=== PATIENT | female | born 1945 | race Caucasian/White ===

== ENCOUNTER 2019-03-04 18:17 | Emergency (ER) | payer MEDICARE, BC ==
[2019-03-04 19:28] VITALS: BP 131/101
[2019-03-04] MEDS ORDERED: Sulfamethoxazole/Trimethoprim 800-160 MG Tab ONE (19:30)
--- NOTE | 2019-03-05 20:24 | EDM.PDOC ---
ED HPI GENERAL MEDICAL PROBLEM - General Chief Complaint: Genitourinary Problem Stated Complaint: urinary tract infection Time Seen by Provider: 03/04/19 18:20 Source of Information: Reports: Patient History Limitations: Reports: No Limitations - History of Present Illness INITIAL COMMENTS - FREE TEXT/NARRATIVE: Pt is a 73 year old female presents to emergency room with c/o painful urination since today morning. Pt claims he has increased frequency or urination and also constant urge to urinate. Pt claims she does get frequent urination and feels like one. No abdominal pain or pelvic pain. No fever or hills. No nausea or vomiting. No back pain. No vaginal bleeding or discharge. No other complaints. Onset Date: 03/04/19 Onset Time: 06:00 Duration: Getting Worse Quality: Reports: Ache Severity: Mild Improves with: Reports: None Worsens with: Reports: None Associated Symptoms: Denies: Confusion, Chest Pain, Cough, Diaphoresis, Fever/ Chills, Headaches, Nausea/Vomiting, Rash, Seizure, Shortness of Breath, Syncope , Weakness - Related Data Allergies Allergy/AdvReac Type Severity Reaction Status Date / Time clarithromycin Allergy Cannot Verified 03/04/19 20:17 Remember Home Meds: Home Meds Amitriptyline [Elavil] 1 - 2 tab PO BEDTIME 03/04/19 [History] Clopidogrel Bisulfate [Clopidogrel] 1 tab PO DAILY 03/04/19 [History] Enalapril Maleate 1 tab PO DAILY 03/04/19 [History] Gabapentin [Neurontin] 1 tab PO BID 03/04/19 [History] Gemfibrozil 1 tab PO DAILY 03/04/19 [History] Levothyroxine Sodium [Synthroid] 1 tab PO DAILY 03/04/19 [History] MV-Mn/Iron/FA/Herbal Cmplx#[id number] [Vitamin D3 Complete Caplet] 1 each PO DAILY [History] Metoprolol Succinate [Toprol Xl] 100 mg PO DAILY 03/04/19 [History] Potassium Chloride 40 meq PO DAILY 03/04/19 [History] Ranitidine [Zantac] 75 mg PO BID 03/04/19 [History] amLODIPine Besylate [Amlodipine Besylate] 1 tab PO DAILY 03/04/19 [History] atorvaSTATin [Lipitor] 40 mg PO BEDTIME 03/04/19 [History] traMADol HCl [Tramadol HCl] 1 - 2 tab PO Q6HR PRN 03/04/19 [History] Past Medical History HEENT History: Reports: Hard of Hearing, Impaired Vision Cardiovascular History: Reports: High Cholesterol, Hypertension, [place], Stents Gastrointestinal History: Reports: GERD Genitourinary History: Reports: Chronic Renal Insuffiency Psychiatric History: Reports: Anxiety, Depression Endocrine/Metabolic History: Reports: Hypothyroidism Social & Family History - Tobacco Use Smoking Status *Q: Unknown Ever Smoked Second Hand Smoke Exposure: No - Caffeine Use Caffeine Use: Reports: Coffee - Recreational Drug Use Recreational Drug Use: No ED ROS GENERAL - Review of Systems Review Of Systems: See Below Constitutional: Denies: Fever, Chills HEENT: Denies: Ear Pain, Rhinitis, Throat Pain Respiratory: Denies: Cough, Sputum Cardiovascular: Denies: Chest Pain, Lightheadedness GI/Abdominal: Denies: Abdominal Pain, Nausea, Vomiting : Reports: Dysuria, Frequency, Urgency. Denies: Flank Pain, Incontinence Musculoskeletal: Denies: Joint Pain, Joint Swelling Skin: Denies: Bruising, Pruritis, Rash ED EXAM, GENERAL - Physical Exam Exam: See Below Exam Limited By: No Limitations General Appearance: Alert, WD/WN, No Apparent Distress Eye Exam: Bilateral Eye: EOMI, PERRL Ears: Normal External Exam, Normal Canal, Hearing Grossly Normal, Normal TMs Ear Exam: Bilateral Ear: Auricle Normal, Canal Normal, TM normal Nose: Normal Inspection, Normal Mucosa, No Blood Throat/Mouth: Normal Inspection, Normal Lips, Normal Teeth, Normal Gums, Normal Oropharynx, Normal Voice, No Airway Compromise Head: Atraumatic, Normocephalic Neck: Normal Inspection, Supple, Non-Tender, Full Range of Motion Respiratory/Chest: No Respiratory Distress, Lungs Clear, Normal Breath Sounds, No Accessory Muscle Use, Chest Non-Tender Cardiovascular: Normal Peripheral Pulses, Regular Rate, Rhythm, No Edema, No Gallop, No JVD, No Murmur, No Rub GI/Abdominal: Normal Bowel Sounds, Soft, Non-Tender, No Organomegaly, No Distention, No Abnormal Bruit, No Mass Course - Vital Signs Text/Narrative:: Pt's UA shows Positive blood and leucosesterase, also micro show 50-75 WBC. Pt reassured that she has acute UTI. She has been started on Bactrim DS 1 po BID for 1 wk. Advised plenty of fluids and 1-2 glass of cranberry juice. Followup with her primary care provider if symptoms worsen. Last Recorded V/S: Last Vital Signs Temp 97.2 F 03/04/19 19:29 Pulse 62 03/04/19 19:29 Resp 16 03/04/19 19:29 BP 131/101 H 03/04/19 19:29 Pulse Ox 95 03/04/19 19:29 - Orders/Labs/Meds Labs: Laboratory Tests 03/04/19 Range/Units 19:25 Urine Color Red Urine Appearance Cloudy (CLEAR) Urine pH 5.5 (5.0-8.0) Ur Specific [place] 1.020 (1.003-1.030) Urine Protein >=300 H (NEGATIVE) mg/dL Urine Glucose (UA) Negative (NEGATIVE) mg/dL Urine Ketones Trace H (NEGATIVE) mg/dL Urine Occult Blood Large H (NEGATIVE) Urine Nitrite Negative (NEGATIVE) Urine Bilirubin Small H (NEGATIVE) Urine Urobilinogen 1.0 (0.2-1.0) E.U./dL Ur Leukocyte Esterase Small H (NEGATIVE) Urine RBC >100 H /HPF Urine WBC 50-75 H /HPF Urine WBC Clumps Few /HPF Ur Squamous Epith Cells Few /HPF Urine Bacteria Moderate H /HPF Departure - Departure Time of Disposition: 19:00 Disposition: Home, Self-Care 01 Condition: Fair Clinical Impression: UTI (urinary tract infection) - Discharge Information *PRESCRIPTION DRUG MONITORING PROGRAM REVIEWED*: Not Applicable *COPY OF PRESCRIPTION DRUG MONITORING REPORT IN PATIENT JANNETH: Not Applicable Instructions: Urinary Tract Infection, Adult, [id number], Sulfamethoxazole; Trimethoprim, SMX-[id number] tablets Referrals: PCP,None [Primary Care Provider] - Forms: ED Department Discharge Additional Instructions: Begin taking provided Bactrim as directed: 1 tablet by mouth twice daily for 7 days. Drink plenty of fluids (water) and get plenty of rest. Drink 2 glasses of cranberry juice daily as well. Diet and activity as tolerated. Should symptoms worsen or persist, return for further evaluation as needed. Call with any questions. - Problem List & Annotations (1) UTI (urinary tract infection) SNOMED Code(s): 21657364 Code(s): N39.0 - URINARY TRACT INFECTION, SITE NOT SPECIFIED Status: Acute - Problem List Review Problem List Initiated/Reviewed/Updated: Yes - Assessment/Plan Assessment:: UTI Plan: Pt's UA shows Positive blood and leucosesterase, also micro show 50-75 WBC. Pt reassured that she has acute UTI. She has been started on Bactrim DS 1 po BID for 1 wk. Advised plenty of fluids and 1-2 glass of cranberry juice. Followup with her primary care provider if symptoms worsen.
== END 2019-03-04 19:40 | disposition home or self-care (01) ==
LOC: LB.ED 18:17
DX: N39.0 Urinary tract infection, site not specified (principal); I12.9 Hypertensive chronic kidney disease with stage 1 through stage 4 chronic kidney disease, or unspecified chronic kidney disease; N18.9 Chronic kidney disease, unspecified; E78.00 Pure hypercholesterolemia, unspecified; E03.9 Hypothyroidism, unspecified; I25.2 Old myocardial infarction; K21.9 Gastro-esophageal reflux disease without esophagitis; Z88.1 Allergy status to other antibiotic agents; Z79.899 Other long term (current) drug therapy
CPT/HCPCS: 81001; 99283; A9270-GY